=== PATIENT | male | born 2000 | race Caucasian/White ===

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

== ENCOUNTER 2021-05-07 01:12 | Emergency (ER) | payer OTHER, SELFPAY ==
[2021-05-07 01:39] VITALS: BP 125/76; PULSE 89; RESP 16; TEMP 37; O2SAT 100; BMI 25.4
--- NOTE | 2021-05-07 03:05 | ED.URI ---
HPI - URI/Sore Throat General Chief Complaint: Upper Respiratory Symptoms Stated Complaint: sore throat slight cough congestion Time Seen by Provider: 05/07/21 02:58 Source: patient and family Mode of arrival: Ambulatory Limitations: no limitations History of Present Illness HPI Narrative: Patient is an unvaccinated 20-year-old male who has had symptoms on it going for the last 3 and half days. Symptoms include sore throat and fever he Went to walk-in clinic had strep test is negative previously had negative COVID testing was negative. He states throat pain gets quite intense randomly. It was so intense that he took an extra oxycodone. Related Data Previous Rx's Medication Instructions Recorded amoxicillin 500 mg capsule 500 mg PO Q8H #30 cap 02/16/19 lidocaine HCl 2 % mucosal solution 15 ml PO Q3-4H PRN #150 ml 02/16/19 (Lidocaine Viscous) Allergies Allergy/AdvReac Type Severity Reaction Status Date / Time No Known Drug Allergies Allergy Verified 05/07/21 02:31 Review of Systems Review of Systems Narrative: GENERAL: + fever HEENT: See HPI RESPIRATORY: Denies dyspnea, cough, wheezing CARDIOVASCULAR: Denies chest pain, palpitations GASTROINTESTINAL: Denies nausea, vomiting MUSCULOSKELETAL: Denies extremity pain, injury SKIN: No rash, no laceration, no pruritus NEUROLOGIC: Denies weakness, dizziness, headache, numbness 8 point review of systems is negative except for those stated above and HPI Patient History Medical History (Updated 05/07/21 @ 03:19 by Juliann Cat DO) Healthy adolescent Surgical History (Updated 02/16/19 @ 20:47 by Danae Polanco PA-C) No history of previous surgery Social History Smoking Status: Never smoker Smoking Status: Never smoker Substance Use Type: does not use Exam Initial Vital Signs Initial Vital Signs: Vital Signs Temperature 98.6 F 05/07/21 01:39 Pulse Rate 89 05/07/21 01:39 Respiratory Rate 16 05/07/21 01:39 Blood Pressure 125/76 05/07/21 01:39 Pulse Oximetry 100 05/07/21 01:39 GENERAL: Alert well-appearing 20-year-old male and in no acute distress. HEENT: Head atraumatic,EOMI, pupils reactive, face symmetric, moist mucous membranes PHARYNX: Mild erythema no tonsils no exudate no uvular swelling or deviation CARDIOVASCULAR: Regular rate and rhythm without murmurs, rubs or gallops. RESPIRATORY: Breath sounds equal bilaterally, no wheezes rales or rhonchi. EXTREMITIES: Normal range of motion, no clubbing or edema. Neurovascularly intact NEUROLOGICAL: Alert and oriented x4.Normal gait and speech. SKIN: Warm, dry, no laceration, no petechiae, no rashes or lesions. Course Orders Ordered: ED Orders 05/07/21 02:39 COVID19 -Nasal swab/Pre-Proc Stat Vital Signs Vital signs: Vital Signs - 8 hr 05/07/21 01:39 05/07/21 03:25 Temperature 98.6 F Pulse Rate 89 97 H Respiratory Rate 16 20 Blood Pressure 125/76 127/76 Pulse Oximetry 100 97 MDM - URI/Sore Throat Lab Data Labs: Lab Results 05/07/21 Range/Units 02:39 SARS-CoV-2 (PCR) Positive H (Negative) Point of Care Testing Rapid Strep A Negative MDM Narrative Medical decision making narrative: Patient is found to be COVID positive I have given him his results. Symptoms are consistent with COVID. We discussed home care and when to return to the emergency department. Discharge Plan Departure Patient Disposition: Home Clinical Impression: COVID-19 Instructions: DI for COVID-19 (Suspected or Confirmed ) Activity Restrictions/Additional Instructions: * if you have not yet been vaccinated is still recommended and encouraged that you do so once your infection has passed At home: -Monitor oxygen with pulse oximeter, it should be above 90% -Wash hands frequently. -Stay isolated at home please follow the isolation instructions below. -Increase fluid intake. -you may take Tylenol as directed if needed for pain or fever Emergency warning signs for COVID-19: - Difficulty breathing or shortness of breath, oxygen less than 90% - Persistent pain or pressure in the chest - New confusion or inability to arouse - Bluish lips or face CDC Guidelines for home isolation: - Stay away from others - Limit contact with pets and animals: If you must care for a pet, wash your hands before and after interacting with them - Wear a mask while in public all places - Cover your mouth and nose with a tissue when you cough or sneeze. Dispose of tissues in a lined trash can and wash your hands immediately with soap and water for at least 20 seconds. If soap and water are not available, clean hands with alcohol-based hand costume shop manager that contains at least 60% alcohol. - Clean your hands often with soap and water for at least 20 seconds - Avoid touching your eyes, nose and mouth with unwashed hands - Do not share dishes, drinking glasses, cups, eating utensils, towels, or bedding with other people in your home. After using these items, wash them thoroughly with soap and water or put in the filteration operator. - Clean high-touch surfaces in your isolation area (?sick room? and bathroom) every day; let a caregiver clean and disinfect high-touch surfaces in other areas of the home. Clean the area or item with soap and water or another detergent if it is dirty. Then, use a household disinfectant. Prescriptions: No Action amoxicillin 500 mg capsule 500 mg PO Q8H Qty: 30 RF: 0 lidocaine HCl [Lidocaine Viscous] 2 % solution 15 ml PO Q3-4H PRN (Reason: sore throat) Qty: 150 RF: 0 Referrals: Kirk Monahan MD [Primary Care Provider] -
[2021-05-07 03:25] VITALS: BP 127/76; PULSE 97; RESP 20; O2SAT 97
[2021-05-08 11:31] LABS: COVID19 -Nasal RAPID POSITIVE (Negative)
== END 2021-05-07 03:25 | disposition home or self-care (01) ==
PROVIDERS: Emergency Provider Emergency Medicine; PCP Pediatrics
DX: U07.1 COVID-19 (principal)
CPT/HCPCS: 87635; 87880; 99281; 99282; C9803